=== PATIENT | female | born 1970 | race African-American/Black ===

== ENCOUNTER 2017-11-28 00:05 | Emergency (ER) | payer OTHER ==
[~2017-11-28] VITALS: Ht 165.1 cm; Wt 70.0 kg
[~2017-11-28 00:05] MED LIST: ACET5SOL5 PO; ALBU8I INH; DICY1TAB26 PO; ZOFR4TAB3 SL
[2017-11-28 00:10] VITALS: BP 145/98; PULSE 98; RESP 18; TEMP 97.9; O2SAT 100
--- NOTE | 2017-11-28 01:11 | PD ---
HPI Chief Complaint: Musculoskeletal Complaint Time Seen by Provider: 01:06 Travel History International Travel<30 days: No Contact w/Intl Traveler<30days: No Traveled to known affect area: No History of Present Illness HPI 47-year-old female patient presents to the ER today, states that she was at work today when she was lifting something, felt a pop in her right thumb and it has been hurting since. She denies any other issues. Modifying Factors: None Associated Signs & Symptoms: Right thumb pain, injury Risk Factors: None PFSH Past Medical History Diminished Hearing: No Immunizations Current: Yes Influenza Vaccination: No ?: Not LMP: 09/13/18 : 4 Para: 2 Miscarriage: 1 Ovarian Cysts: Yes (RIGHT ) Tubal Ligation: Yes Past Surgical History Gynecologic Surgery: Yes (REMOVAL RIGHT OVARIAN CYST) Social History Alcohol Use: Yes (occ) Tobacco Use: No Substance Use: No Allergies-Medications (Allergen,Severity, Reaction): Coded Allergies: No Known Allergies (Verified Adverse Reaction, Unknown, 11/28/17) Reported Meds & Prescriptions Reported Meds & Active Scripts Active No Active Prescriptions or Reported Medications Review of Systems Except as stated in HPI: all other systems reviewed are Neg Physical Exam Narrative GENERAL: Well-nourished, well-developed middle age -[place] female patient in mild distress. SKIN: Focused skin assessment warm/dry. HEAD: Normocephalic. EYES: No scleral icterus. No injection or drainage. NECK: Supple, trachea midline. CARDIOVASCULAR: Regular rate and rhythm without murmurs, gallops, or rubs. RESPIRATORY: Breath sounds equal bilaterally. No accessory muscle use. GASTROINTESTINAL: Abdomen soft, non-tender, nondistended. MUSCULOSKELETAL: No cyanosis, or edema. EXTREMITIES: No clubbing, cyanosis, or edema. No joint tenderness, effusion, or edema noted. There is notable tenderness on palpation of the base of the right thumb at around the base of the proximal metacarpal area. No obvious deformities identified. Data Data Last Documented VS Vital Signs Date Time Temp Pulse Resp B/P (MAP) Pulse Ox O2 Delivery O2 Flow Rate FiO2 11/28/17 01:32 94 16 133/79 (97) 97 Room Air 11/28/17 00:10 97.9 Orders Orders Finger ([id number]) (11/28/17 00:34) Wrist, Complete ([id number]) (11/28/17 01:16) Splint Or Brace Apply/Monitor (11/28/17 02:06) MDM Medical Decision Making Medical Screen Exam Complete: Yes Emergency Medical Condition: Yes Medical Record Reviewed: Yes Interpretation(s) Last 24 hours Impressions Finger X-Ray 11/28/17 0034 Signed Impressions: Service Date/Time: Tuesday, November 28, 2017 00:55 - CONCLUSION: No acute disease. Steven Salmon MD Differential Diagnosis Thumb injury: Fracture versus strain Narrative Course X-rays did not show any signs of acute fractures or dislocations. Considering the low she should that the pain and is closeness to the snuffbox, thumb spica splint was placed on the patient and my plan would be to release the patient with follow-up to hand. Return for any worsening in pain or new issues as needed. The plan has been discussed with her and she states understanding. Diagnosis Primary Impression: Thumb injury Med/Other Pt SpecificInfo: Prescription(s) given Scripts Ibuprofen (Ibuprofen) 600 Mg Tab 600 MG PO Q6H Y for Pain/Inflammation, #20 TAB 0 Refills Prov: Rut Ladd MD 11/28/17 Disposition: 01 DISCHARGE HOME Condition: Stable Rut Ladd MD Nov 28, 2017 01:11
--- NOTE | 2017-11-28 01:15 | RADRPT ---
EXAM DATE/TIME: 11/28/2017 00:55 [facility] COMPARISON: No previous studies available for comparison. INDICATIONS : Right hand, first digit pain. MEDICAL HISTORY : None. SURGICAL HISTORY : None. ENCOUNTER: Initial ACUITY: 1 day PAIN SCORE: 8/10 LOCATION: Right upper extremity FINDINGS: Examination of the first digit of the right hand demonstrates no evidence of fracture or dislocation. No radiopaque foreign bodies are seen. The soft tissues are intact. CONCLUSION: No acute disease. Steven Salmon MD on November 28, 2017 at 1:10 Board Certified Radiologist. This report was verified electronically.
[2017-11-28 01:32] VITALS: BP 133/79; PULSE 94; RESP 16; O2SAT 97
--- NOTE | 2017-11-28 02:06 | RADRPT ---
EXAM DATE/TIME: 11/28/2017 01:45 [facility] COMPARISON: No previous studies available for comparison. INDICATIONS : Right wrist pain. MEDICAL HISTORY : None. SURGICAL HISTORY : None. ENCOUNTER: Initial ACUITY: 1 day PAIN SCORE: 7/10 LOCATION: Right upper extremity FINDINGS: Three view examination of the right wrist demonstrates no soft tissue swelling, dislocation, or fract ure. The carpal bones are in normal alignment. The joint spaces are maintained. There is negative ulnar variance. Bony mineralization is normal. CONCLUSION: No acute disease. Steven Salmon MD on November 28, 2017 at 2:01 Board Certified Radiologist. This report was verified electronically.
[2017-11-28] MEDS ORDERED: IBUP-232 PO (02:08)
== END 2017-11-28 02:34 | disposition home or self-care (01) ==
LOC: PHED 00:05
DX: S69.91XA Unspecified injury of right wrist, hand and finger(s), initial encounter (principal); X50.9XXA Other and unspecified overexertion or strenuous movements or postures, initial encounter; Y99.0 Civilian activity done for income or pay
CPT/HCPCS: 73110; 73140; 99283; L3808; 29130